=== PATIENT | male | born 1970 | race Caucasian/White ===

== ENCOUNTER 2017-09-18 07:17 | Emergency (ER) | payer OTHER ==
[~2017-09-18] VITALS: Ht 188 cm; Wt 65.0 kg
[2017-09-18 07:43] VITALS: BP 129/89; RESP 17; TEMP 98.3
--- NOTE | 2017-09-18 08:16 | PD ---
HPI Chief Complaint: Alcohol/Drug Intoxication Time Seen by Provider: 08:05 Travel History International Travel<30 days: No Contact w/Intl Traveler<30days: No Traveled to known affect area: No History of Present Illness HPI Patient is a 46-year-old male who is followed by [facility] for cocaine abuse presents emergency department today by law enforcement under act for evaluation of possible inpatient placement for cocaine detoxification. The patient states he's been up all night on a binge and smoking crack cocaine. He has no physical complaints this time, denies any chest pain shortness of breath abdominal pain nausea vomiting. He denies any use of IV substances of abuse. Denies any fevers. Denies any past medical problems. [facility] Past Medical History Medical History: Denies Significant Hx Diminished Hearing: No Tetanus Vaccination: Unknown ?: Not Past Surgical History Surgical History: No Previous Surgery Social History Alcohol Use: No Tobacco Use: Yes (1/2 PPD) Substance Use: Yes (CRACK) Allergies-Medications (Allergen,Severity, Reaction): Coded Allergies: No Known Allergies (Unverified , 09/18/17) Review of Systems Except as stated in HPI: all other systems reviewed are Neg Physical Exam Narrative GENERAL: Well-developed well-nourished in no obvious distress SKIN: Focused skin assessment warm/dry. HEAD: Atraumatic. Normocephalic. EYES: Pupils equal and round. No scleral icterus. No injection or drainage. ENT: No nasal bleeding or discharge. Mucous membranes pink and moist. NECK: Trachea midline. No JVD. CARDIOVASCULAR: Regular rate and rhythm. No murmur appreciated. RESPIRATORY: No accessory muscle use. Clear to auscultation. Breath sounds equal bilaterally. GASTROINTESTINAL: Abdomen soft, non-tender, nondistended. Hepatic and splenic margins not palpable. MUSCULOSKELETAL: No obvious deformities. No clubbing. No cyanosis. No edema. NEUROLOGICAL: Awake and alert. No obvious cranial nerve deficits. Motor grossly within normal limits. Normal speech. PSYCHIATRIC: Appropriate mood and affect; insight and judgment normal. Denies suicidal homicidal ideation. Denies audiovisual hallucinations. Data Data Last Documented VS Vital Signs Date Time Temp Pulse Resp B/P (MAP) Pulse Ox O2 Delivery O2 Flow Rate FiO2 09/18/17 08:39 67 17 100 Room Air 09/18/17 07:43 98.3 129/89 (102) Orders Orders Complete Blood Count With Diff (09/18/17 08:08) Comprehensive Metabolic Panel (09/18/17 08:08) Psych Screen (09/18/17 08:08) Drug Screen, Random Urine (09/18/17 08:08) Alcohol (Ethanol) (09/18/17 08:08) Salicylates (Aspirin) (09/18/17 08:08) Tylenol (Acetaminophen) (09/18/17 08:08) Labs Laboratory Tests Test 09/18/17 08:00 09/18/17 08:05 White Blood Count 10.2 TH/MM3 Red Blood Count 4.70 MIL/MM3 Hemoglobin 14.1 GM/DL Hematocrit 42.6 % Mean Corpuscular Volume 90.7 FL Mean Corpuscular Hemoglobin 30.0 PG Mean Corpuscular Hemoglobin Concent 33.1 % Red Cell Distribution Width 13.1 % Platelet Count 254 TH/MM3 Mean Platelet Volume 7.2 FL Neutrophils (%) (Auto) 80.4 % Lymphocytes (%) (Auto) 14.8 % Monocytes (%) (Auto) 4.7 % Eosinophils (%) (Auto) 0.0 % Basophils (%) (Auto) 0.1 % Neutrophils # (Auto) 8.2 TH/MM3 Lymphocytes # (Auto) 1.5 TH/MM3 Monocytes # (Auto) 0.5 TH/MM3 Eosinophils # (Auto) 0.0 TH/MM3 Basophils # (Auto) 0.0 TH/MM3 CBC Comment DIFF FINAL Differential Comment Blood Urea Nitrogen 16 MG/DL Creatinine 1.28 MG/DL Random Glucose 64 MG/DL Total Protein 9.0 GM/DL Albumin 4.6 GM/DL Calcium Level 9.3 MG/DL Alkaline Phosphatase 60 U/L Aspartate Amino Transf (AST/SGOT) 44 U/L Alanine Aminotransferase (ALT/SGPT) 26 U/L Total Bilirubin 0.4 MG/DL Sodium Level 134 MEQ/L Potassium Level 4.2 MEQ/L Chloride Level 100 MEQ/L Carbon Dioxide Level 22.0 MEQ/L Anion Gap 12 MEQ/L Estimat Glomerular Filtration Rate 61 ML/MIN Salicylates Level 4.3 MG/DL Acetaminophen Level LESS THAN 2.0 MCG/ML Ethyl Alcohol Level LESS THAN 3 MG/DL Urine Opiates Screen NEG Urine Barbiturates Screen NEG Urine Amphetamines Screen NEG Urine Benzodiazepines Screen NEG Urine Cocaine Screen POS Urine Cannabinoids Screen NEG MDM Medical Decision Making Medical Screen Exam Complete: Yes Emergency Medical Condition: Yes Differential Diagnosis Substance abuse, substance addiction, acute intoxication is been excluded clinically. Narrative Course Patient roomed in emergency department, has no medical emergency that warrants further workup at this time. I reviewed his [place] act which is a standardized form and the contracting officer completing the form checked of the patient is likely to suffer from neglect refuse care for himself for herself. The form goes on to say "Pablo's called the police on this date and asked for help with substance abuse. Pablo stated that he had been up all night smoking crack and wanted to go to a detox center. Pablo sustaining a protective custody. " The first page is not filled out. The patient is voluntarily summoning himself for inpatient detoxification states he call the police officers just for a ride up here. Return to work with her psych screener to determine the best course of action for this patient however he does not in my opinion meet criteria for involuntarily holding him. I therefore lifted his [place] act. Labs are within normal limits, there is no medical complaints or warrants further workup. He is medically cleared for evaluation of sore [place] act. Coordinating with my psychiatric screener transportation has been arranged for [employer] act. He is stable for such. Diagnosis Primary Impression: Cocaine abuse Disposition: 65 DISC TO PSYCH CARE FACILITY Condition: Stable Bradley Chapman MD Sep 18, 2017 08:16
[2017-09-18 08:39] VITALS: PULSE 67; RESP 17; O2SAT 100
[2017-09-18 08:40] LABS: AUTOMATED NEUTROPHIL # 8.2 TH/MM3 (1.8-7.7); BASOPHIL % 0.1 % (0.0-2.0); HEMATOCRIT 42.6 % (39.0-51.0); HEMO FLAGS DIFF FINAL; LYMPH % 14.8 % (9.0-44.0); LYMPHOCYTE # 1.5 TH/MM3 (1.0-4.8); MEAN CELL VOLUME 90.7 FL (80.0-100.0); MEAN CORPUSCULAR HGB CONC 33.1 % (32.0-36.0); MONO % 4.7 % (0.0-8.0); NEUT % 80.4 % (16.0-70.0); PLATELET COUNT 254 TH/MM3 (150-450); RED CELL DISTRIBUTION WIDTH 13.1 % (11.6-17.2); WHITE BLOOD COUNT 10.2 TH/MM3 (4.0-11.0)
[2017-09-18 09:02] LABS: ANION GAP 12 MEQ/L (5-15); AST (GOT) 44 U/L (15-37); BLOOD UREA NITROGEN 16 MG/DL (7-18); CHLORIDE 100 MEQ/L (98-107); GLOMERULAR FILTRATION RATE 61 ML/MIN (>89); POTASSIUM 4.2 MEQ/L (3.5-5.1); SODIUM (NA) 134 MEQ/L (136-145)
[2017-09-18 09:06] LABS: ALKALINE PHOSPHATASE 60 U/L (45-117); ALT (GPT) 26 U/L (12-78); TOTAL BILIRUBIN ADULT 0.4 MG/DL (0.2-1.0)
[2017-09-18 09:13] LABS: ACETAMINOPHEN LESS THAN 2.0 MCG/ML (10.0-30.0); ALCOHOL LESS THAN 3 MG/DL (0-5)
== END 2017-09-18 10:22 ==
LOC: NEPC 07:17
DX: F14.10 Cocaine abuse, uncomplicated (principal); Z72.0 Tobacco use
CPT/HCPCS: 80053; 80307; 85025; 99285